=== PATIENT | female | born 2000 | race Caucasian/White ===

== ENCOUNTER 2023-11-19 11:10 | Inpatient (IN) | payer BC, SELFPAY ==
[2023-11-19] VITALS (22 sets, daily range): BP systolic 103–129; BP diastolic 66–80; PULSE 82–105; RESP 22; TEMP 36.7–37.1; O2SAT 94–100; BMI 32.4
[2023-11-19] MEDS: LACTATED RINGERS 1000 ML 1,000 ML 125 ML IV ×2 (12:25→20:30)
[2023-11-19] MEDS: OXYTOCIN 30 unit/500 ML in NS 30 UNIT/500 ML BAG IVPB (12:25)
--- NOTE | 2023-11-19 13:17 | PM.OBHPLI ---
OB - H&P: HPI Labor/Induction History of Present Illness Time Seen by Provider: 13:18 Date Seen: 11/19/23 Chief Complaint: The patient is a [] year old [] para [] at [] weeks gestation by [], who presents with []. [] Chief complaint: Maternity : 3 Para: 1 Narrative: Tesha Randle is a 22 year old female who presented for routine care. Has been leaking small gushes of clear fluid since Thursday approximately. She has been steven off and on. Amnisure was positive in clinic. History of Present Dating criteria: based on LMP (consistent with 1st trimester ultrasound) care: good care Ultrasounds: normal 1st trimester US and normal mid trimester US Abnormal ultrasound findings: growth at end of September showed: The estimated weight is 3020 grams which lies at the 56 %. Medical complications: none Labs Blood type: A (+) positive Rubella: immune RPR/VDLR: nonreactive GBS status: negative HBsAG: negative Narrative: Hemoglobin recently 14.3 Review of Systems Status of ROS: Reports: 10 or more systems reviewed and unremarkable except as noted in History and below Meds Home Medications and Allergies Home Medications ?Medication ?Instructions ?Recorded ?Confirmed ?Type vit no.95-ferrous 1 tab PO DAILY 11/19/23 11/19/23 History fumarate 28 mg-folic acid 800 mcg tablet ( Multivitamins) Allergies Allergy/AdvReac Type Severity Reaction Status Date / Time amoxicillin Allergy Rash Verified 11/19/23 11:24 OB - H&P: Exam Physical Exam: Vital signs: Temp Pulse BP Pulse Ox 98.5 F 97 122/74 100 11/19/23 11:18 11/19/23 11:19 11/19/23 11:19 11/19/23 11:15 Constitutional: Constitutional: no acute distress Routine Respiratory Exam: Respiratory: Present CTA bilaterally Routine Cardiovascular Exam: Cardiovascular: RRR, S1 and S2 Routine Exam: Perineum Description: Normal Detailed Labor and Delivery Exam: Patient Gravid: Yes Dilation (cm): 2 Effacement (%): 50 Cervix position: posterior Consistency: medium Cervical ripeness score: 5 Fetus (Single): Station: -2 Amniotic Membrane Status: SROM Amniotic Membrane Fluid Description: Clear Heart Rate Baseline: 144 Monitor Accelerations: Present Monitor Decelerations: None Routine Neurological Exam: Present alert and oriented X3 Routine Psychiatric Exam: Present normal affect OB - Problem Based A/P Additional Plan (1) SROM (spontaneous rupture of membranes): Problem details: Believes she has been having small gushes since 11/16/2023 Status: Acute (2) Prolonged rupture of membranes: Status: Acute Plan: - monitor closely for signs/symptoms of infection. (3) Term : Status: Acute Plan -desires water . Delivery/Labor/Induction Plan Plan: induction Induction method: per pitocin protocol
[2023-11-19 18:40] LABS: Basophils Absolute Auto 0.01 K/uL (0.00-0.30); Basophils Percent Auto 0.1 % (0.0-3.0); Eosinophils Absolute Auto 0.13 K/uL (0.00-0.50); Eosinophils Percent Auto 1.4 % (0.0-7.0); Hematocrit 43.4 % (33.0-51.0); Hemoglobin* 14.5 gm/dL (12.0-16.0); Immature Granulocytes Abs Auto 0.09 K/uL (0.00-0.30); Lymphocytes Percent Auto 17.2 % (20-44); Mean Corpuscular HGB Conc 33 gm/dL (32-36); Mean Corpuscular Hemoglobin 31 pg (26-34); Mean Corpuscular Volume 91 fL (80-100); Monocytes Percent Auto 7.4 % (0.0-11.0); Neutrophils Percent Auto 72.9 % (42.0-72.0); Platelet Count* 205 K/uL (140-440); RDW Coefficient of Variation % 13.3 % (11.5-15.5); Red Blood Count 4.75 m/uL (4.00-5.20)
[2023-11-19 18:43] LABS: Slide Review Reflex No
--- NOTE | 2023-11-19 19:46 | PM.OBPNL ---
Subjective Time Seen by Provider: 19:46 Date Seen: 11/19/23 Narrative: Patient is having regular contractions, but denies significant pain. Her pitocin is at 8. Objective Exam: Resting comfortably in bed, playing board game with /mother. Vital Signs: Last Vital Signs Temp 98.5 F 11/19/23 19:15 Pulse 96 11/19/23 19:23 BP 121/66 11/19/23 19:23 Pulse Ox 98 11/19/23 19:23 Pelvic Exam Dilation (cm): 3 Effacement (%): 80 Station: -2 Contractions Monitor mode: External Contraction Frequency: 2-5 minutes Contraction pattern: Irregular Contraction intensity: Moderate Pitocin Rate (mU/min): 8 Assessment Assessment: induction ongoing Station: -2 Amniotic Membrane Status: SROM Status: Category l Heart Rate Baseline: 144 Loss Prevention Investigator Variability: Moderate (6-25) Monitor Accelerations: Present Monitor Decelerations: None Labor Progress: making slow progress, ruptured forebag. Plan Plan: -ongoing titration of pitocin. - anticipate
--- NOTE | 2023-11-19 21:19 | P.OBPN_ITS ---
Subjective Time Seen by Provider: 21:19 Date Seen: 11/19/23 Narrative: contractions are becoming more intense, breathing through them. Objective Exam: breathing through contractions Vital Signs: Last Vital Signs Temp 98.1 F 11/19/23 20:30 Pulse 102 H 11/19/23 20:31 BP 129/74 11/19/23 20:31 Pulse Ox 97 11/19/23 20:31 Pelvic Exam Dilation (cm): 3 Effacement (%): 80 Station: -2 Contractions Monitor mode: External Contraction pattern: Irregular Contraction intensity: Moderate Pitocin Rate (mU/min): 8 Assessment Assessment: induction ongoing Station: -2 Amniotic Membrane Status: SROM Status: Category l Heart Rate Baseline: 140 Replanting Machine Crew Variability: Moderate (6-25) Monitor Accelerations: Present Monitor Decelerations: Variable Plan Plan: - feeling more, declines cervical check at this time. Continue IOL
--- NOTE | 2023-11-19 21:54 | PM.OBPNL ---
Subjective Time Seen by Provider: 21:55 Date Seen: 11/19/23 Objective Vital Signs: Last Vital Signs Temp 98.1 F 11/19/23 20:30 Pulse 102 H 11/19/23 20:31 BP 129/74 11/19/23 20:31 Pulse Ox 97 11/19/23 20:31 Pelvic Exam Dilation (cm): 6 Effacement (%): 90 Station: -2 Contractions Monitor mode: External Contraction Frequency: 1-2 Contraction pattern: Regular Contraction intensity: Strong/Firm Pitocin Rate (mU/min): 8 Assessment Assessment: active labor Station: -2 Amniotic Membrane Status: SROM Status: Category l Heart Rate Baseline: 140 Custodial Variability: Moderate (6-25) Monitor Accelerations: Present Monitor Decelerations: Variable Plan Plan: - continued IOL. Anticipate . Filling tub as she desires water .
--- NOTE | 2023-11-19 23:14 | W.PM.OBVAGDE ---
OB Procedure Vag Delivery Mother Details Mother Details: The patient is a 22 year-old, 3, Para 1, admitted on 11/19/23 at Days gestation. : 3 Para: 1 Weeks Gestation: 39.5 Admission Date: 11/19/23 Additional Details Amniotic Membrane Status: SROM Amniotic Membrane Rupture Date: 11/16/23 Amniotic Membrane Fluid Description: Clear Analgesia/Anesthesia Type: None Waterbirth: Yes Pitcoin: Yes Intrapartal Events: Labor Induction and ROM >18 Hours Induction Method: per pitocin protocol Labor Onset: 21:46 Complete: 22:31 Pushin:31 Heart: heart tones during second stage were reassuring. Occasional variable decels. Delivery Details Delivery Date: 11/19/23 Delivery Time: 22:42 Route of delivery: Infant Gender: Female Viability: Alive; Heart Rate Present Position at Delivery: OA Delivery Details: Patient presented with prolonged rom (ruptured / in small gushes since). Was admitted to labor and delivery. Pitocin was started. Forebag was ruptured at 3-4cm. Patient progressed well thereafter. Desired water . Pushing started at 2231, delivered infant over intact perineum via spontaneous vaginal delivery. was placed on maternal abdomen.? Cord was clamped and cut after a 4 minute delay. Nose and mouth were bulb suctioned.? Infant weight pending. Patient was moved to bed for delivery of placenta. 1 Minute Interval Total Score: 8 5 Minute Interval Total Score: 8 Additional Details Shoulder Dystocia: No Placenta Delivery Time: 22:56 Placental Delivery Description: Spontaneous Procedure Done: Global Blood Loss: 250 Laceration: None Blood Loss Measurement Type: EBL Bakri Used: No Sponge/Need Count Correct: Yes Cord Vessel Description: 3 Vessels Event Summary Status: Mother and were stable after delivery.
--- NOTE | 2023-11-19 23:57 | PM.OBPNVD1 ---
OB - PN:Subj Subjective Time Seen by Provider: 00:01 Date Seen: 11/20/23 Interval history: Patient is doing well post water . Latching baby well. Planning on exclusively breast feeding. Patient comments OB post-: no complaints and pain well controlled infant status: [place] feeding status: exclusively OB - PN: Obj Exam Physical Exam: Vital signs: Temp Pulse BP Pulse Ox 98.8 F 97 118/69 97 11/19/23 22:30 11/19/23 23:44 11/19/23 23:44 11/19/23 20:31 Constitutional: Constitutional: no acute distress Routine HEENT Exam: Head: Present atraumatic Routine Respiratory Exam: Comments: Breathing comfortably in bed Routine Abdominal Exam: Abdominal: Present soft Fundus: Present firm Routine Extremities Exam: Extremities: Present full ROM; Absent pedal edema Routine Back/Spine/Pelvis Exam: Back/Spine: Present full ROM Routine Neurological Exam: Neurological: Present alert and oriented X3 Routine Psychiatric Exam: Psychiatric: Present normal affect OB - PN: Obj Data Labs Labs: Laboratory Results - last 24 hr 11/19/23 18:21 WBC 9.30 RBC 4.75 Hgb 14.5 Hct 43.4 MCV 91 MCH 31 MCHC 33 RDW Coeff of Mary 13.3 Plt Count 205 Neut % (Auto) 72.9 H Lymph % (Auto) 17.2 L [place] % (Auto) 7.4 Eos % (Auto) 1.4 Baso % (Auto) 0.1 Neut # (Auto) 6.80 Lymph # (Auto) 1.60 [place] # (Auto) 0.70 Eos # (Auto) 0.13 Baso # (Auto) 0.01 Abs Immat Gran (auto) 0.09 Imm/Tot Granulo (auto) 1.0 Blood Type A Positive Antibody Screen NEGATIVE OB - PN: A/P Delivery Assessment and Plan (1) SROM (spontaneous rupture of membranes): Problem details: Believes she has been having small gushes since 11/16/2023 Status: Acute (2) Prolonged rupture of membranes: Status: Acute (3) Term : Status: Acute (4) (normal spontaneous vaginal delivery): Status: Acute Plan -routine cares Plan day: 1 Plan: routine care Comments: Likely discharge to home Thursday morning after completing baby's 24 hour tasks
[2023-11-20] VITALS (9 sets, daily range): BP systolic 105–127; BP diastolic 58–78; PULSE 78–104; RESP 16–18; TEMP 36.6–37; O2SAT 96–98
[2023-11-20] MEDS: DOCUSATE SODIUM 100 MG CAPSULE PO (06:14)
[2023-11-20 06:25] LABS: Hemoglobin* 13.2 gm/dL (12.0-16.0)
[2023-11-20] MEDS: ACETAMINOPHEN 500 MG TABLET 1000 MG PO ×2 (12:01→18:07)
[2023-11-20] MEDS: IBUPROFEN 600 MG TABLET PO ×2 (16:03→23:35)
[2023-11-21] MEDS: IBUPROFEN 600 MG TABLET PO (06:14)
[2023-11-21 07:34] VITALS: BP 105/66; PULSE 85; RESP 16; TEMP 36.6; O2SAT 97
--- NOTE | 2023-11-21 08:27 | P.DS_ITS ---
DS: Providers Provider Date Seen: 11/21/23 Date of admission: 11/19/23 11:10 Primary care physician: Ashley Og MD Admitting Clinician: Ashley Og MD Attending Physician on discharge: Ashley Og MD Exam Narrative: Exam Narrative: Gen: No acute distress CV: Regular rate and rhythm, normal S1,S2, no murmurs Resp: Normal rate and effort, clear to auscultation bilaterally Ext: Warm, dry, 2+ pedal pulses, no edema bilaterally. Calves non-tender to palpation. Const: Vital Signs, click to edit/add: Vital Signs - 24 hr 11/20/23 08:31 11/20/23 12:04 11/20/23 16:59 Temperature 97.8 F 98 F 98.4 F Pulse Rate [Pulse Oximeter] 98 104 H 88 Respiratory Rate 16 16 16 Blood Pressure [Le ft Arm] 110/68 127/78 117/74 Pulse Oximetry 97 97 97 Oxygen Delivery Me thod Room Air Room Air Room Air 11/20/23 19:51 11/20/23 23:34 11/21/23 07:34 Temperature 98.5 F 98.6 F 97.9 F Pulse Rate [Pulse Oximeter] 78 84 85 Respiratory Rate 16 16 16 Blood Pressure [Le ft Arm] 109/73 107/69 105/66 Pulse Oximetry 98 96 97 Oxygen Delivery Me thod Room Air Room Air Room Air OB - DS: Summary Hospital Course Hospital Course: The patient is a 22 year old G 3 P 3 at 39.5 weeks gestation that was admitted to the Center on 11/19/23 for PROM. She had an uncomplicated vaginal delivery. She delivered a viable female infant. She is breast feeding. the patient has done well. Peripartum Data delivery method: Vaginal [place] Gender: Female Status at Discharge Functional status at discharge: independent ambulation Overall status at discharge: patient is back to baseline Time Spent with Patient Time attestation: Total time spent providing and/or coordinating discharge services: Discharge Plan Discharge Disposition: Home, Self-Care Date of Admission: 11/19/23 11:10 Attending Provider on Discharge: Mara Chahal Primary Care Provider: Ashley Og Condition: Stable Anticipated Discharge Date/Time: 11/21/23 08:29 Discharge Medications: Continued PNV cmb#95-ferrous fumarate-FA [ Multivitamins] 28 mg iron- 800 mcg tablet 1 tab PO DAILY Discharge Orders: Discharge Order (Routine); Ordered 11/21/23 Ordered By: Mara Chahal Patient Education: OB Vaginal/Breast Feeding Activity Level: No Restrictions and Activity as Tolerated Discharge Diet: Regular Follow Up Appointments: Ashley Og MD [Primary Care Provider] - Forms: [facility] Info Instructions Discharge Comments: Appointment schedule for Mee on Thursday, 11/23 at 2:25PM. DS:Data Additional Comments Additional comments: - Pelvic rest for 6 weeks (no intercourse, tampons or douching), or until one week after vaginal bleeding stops. - Daily activities for the first week should be limited to taking care of patient and her baby, and only as tolerated. - Call MD if fever > 100.4 degrees, bleeding more than 1 pad / hour, foul- smelling discharge, passage of golf-ball sized blood clots, or worsening of pain not controlled by medications. - Counseled on signs of post- depression
[2023-11-21] MEDS: DOCUSATE SODIUM 100 MG CAPSULE PO (09:00)
[2023-11-21 22:01] LABS: Rapid Plasma Reagin (RPR) Non Reactive (Non Reactive)
== END 2023-11-21 11:09 | disposition home or self-care (01) | DRG 560 ==
LOC: OB OUT 11:10 → OB 11:14
PROVIDERS: Admitting Provider Family Medicine; PCP Family Medicine; Visit Provider Family Medicine
DX: O42.12 Full-term premature rupture of membranes, onset of labor more than 24 hours following rupture (principal); Z3A.39 39 weeks gestation of pregnancy; Z37.0 Single live birth
CPT/HCPCS: 36415; 85018; 85025; 86592; 86850; 86900; 86901; 88307; G0463; A9270; J7120